=== PATIENT | male | born 1970 | race Caucasian/White ===

== ENCOUNTER → 2016-05-16 | Emergency (ER) | payer BC ==
[2016-05-16 19:27] VITALS: BP 110/76; PULSE 48; RESP 15; TEMP 98.1; O2SAT 97
--- NOTE | 2016-05-16 20:22 | UCPHY ---
H & P Time Seen by Provider: 05/16/16 19:44 Patient Type: New HPI/ROS: CHIEF COMPLAINT: Right 1st toe pain HISTORY OF PRESENT ILLNESS: 45-year-old male presents with right 1st toe pain. Yesterday morning he stepped his toe. Immediate onset of moderate pain. The pain increases with weight-bearing. Associated with gradually increasing bruising and swelling. No other injuries. ROS: No numbness, weakness, excessive bleeding, syncopal episode, other injury. Past Medical/Surgical History: Denies Smoking Status: Never smoked Physical Exam: Alert and oriented x3, no acute distress. Extremities: right 1st toe-ecchymosis and swelling over the entire 1st toe, especially at the distal phalanx; no tenderness over the other toes or foot Skin: intact Neuro: Motor and sensory intact Vascular: Capillary refill brisk distally. Constitutional: Initial Vital Signs Temperature (C) 36.7 C 05/16/16 19:25 Heart Rate 48 L 05/16/16 19:25 Respiratory Rate 15 05/16/16 19:25 Blood Pressure 110/76 05/16/16 19:25 O2 Sat (%) 97 05/16/16 19:25 O2 Delivery Mode Room Air Allergies/Adverse Reactions: Sulfa (Sulfonamide Antibiotics) Allergy (Intermediate, Verified 02/01/11 09:29) Hives Home Medications: Medication Instructions Recorded Cytomel 02/01/11 SYNTHROID 02/01/11 Sertraline HCl 05/16/16 Medical Decision Making - Diagnostics Imaging: X-ray independently reviewed by me reveals a fracture of the distal phalanx of the 1st toe ED Course/Re-evaluation: The toes were tamar taped and a postop shoe placed. Departure - Departure Disposition: Home, Routine, Self-Care Clinical Impression: Toe fracture, right Qualifiers: Encounter type: initial encounter Toe: great toe Fracture type: closed Phalanx : distal Fracture alignment: nondisplaced Qualified Code(s): S92.424A - Nondisplaced fracture of distal phalanx of right great toe, initial encounter for closed fracture Condition: Good Instructions: Toe Fracture (ED) Additional Instructions: Ibuprofen 600 mg 3 times daily while the pain persists. Tamar tape toes for comfort. Wear the postop shoe for comfort. Referrals: Janey Patel [Doctor of Podiatric Medicine] - 5-7 days, if not improved - PQRS PQRS Measurement: N/A
== END | disposition home or self-care (01) ==
LOC: CED 19:19
DX: M79.674 Pain in right toe(s) (principal)
CPT/HCPCS: 73660-PO; 99203-PO; G0463-PO